=== PATIENT | female | born 2005 | race Caucasian/White ===

== ENCOUNTER 2024-08-03 20:44 | Emergency (ER) | payer MEDICAID, SELFPAY ==
[2024-08-03 20:47] VITALS: PULSE 137; RESP 34; TEMP 36.7; O2SAT 99
[2024-08-03 21:14] VITALS: RESP 18; O2SAT 97; BMI 23.2
--- NOTE | 2024-08-03 21:17 | ED.VIS.DYS ---
HPI History of Present Illness Chief Complaint: Shortness of Breath [facility] Medical History (Updated 08/03/24 @ 21:15 by Ursula Peres Self) Asthma Home Medications ?Medication ?Instructions ?Recorded ?Last Taken ?Type albuterol 90 mcg/actuation aerosol mcg inhalation 08/03/24 Unknown History inhaler albuterol 90 mcg/actuation aerosol mcg inhalation 08/03/24 Unknown History inhaler Allergy/AdvReac Type Severity Reaction Status Date / Time No Known Allergies Allergy Verified 08/03/24 20:47 Social History Smoking Status: Never smoker EXAM Physical Exam Const Vital Signs: 08/03/24 20:47 08/03/24 21:14 08/03/24 21:14 Temperature 98.1 F Temperature Source Temporal Pulse Rate 137 H Respiratory Rate 34 H 18 Pulse Ox 99 97 97 Oxygen Delivery Method Room Air Room Air Room Air [facility] MDM Narrative Medical decision making narrative: HISTORY OF PRESENT ILLNESS: 19-year-old female history of asthma presents with concern for shortness of breath. Notes she had a pretty severe asthma exacerbation that began just prior to arrival that has since resolved. No complaints at this time. No chest pain. No leg swelling. The patient denies recent surgery in the last 4 weeks or immobilization in the last 3 days, denies previous diagnosis of DVT or PE, hemoptysis, unilateral leg swelling or malignancy with treatment the last 6 months or palliative. No estrogen use noted. REVIEW OF SYSTEMS: Pertinent positives: Shortness of breath Pertinent negatives: Cough, fever, leg swelling, syncope, fever PHYSICAL EXAM: Nursing triage notes reviewed, Vital signs reviewed Constitutional: please see mdm HENT: MMM Eyes: Pupils equal round and reactive to light, Extraocular muscles intact Neck: No stridor, no JVD, full neck ROM Lungs: Clear to auscultation, slight end expiratory wheezing. No increased work of breathing, no conversational dyspnea, no accessory muscle use, no nasal flaring. No respiratory distress noted Heart: Regular rate and rhythm, No murmurs, No rubs and No gallops, 2+ distal pulses (radial, femoral, posterior tibial) in all extremities Abdomen: Soft, there is no tenderness, rigidity, rebound or guarding, no obvious peritoneal signs, no palpable pulsatile abdominal masses, no auscultated abdominal bruit : No CVAT Extremities: No edema Neuro: No new focal neurological deficits, cranial nerves II through XII intact, 5/5 strength in all present extremities. Intact sensation to light touch in all present extremities, 2+ reflexes bilateral patella tendons. Skin: No rash or lesions noted MEDICAL DECISION MAKING: Chief Complaint: Shortness of breath External records reviewed: Reviewed prior imaging studies Factors affecting care: Asthma Social determinants of health: none History obtained from others: none Consults: none MDM Narrative: Patient was initially tachycardic, afebrile, saturating 98% room air. Blood pressure 142/98, pulse was 88, she is afebrile with a temperature of 98.1. She appeared comfortable she is speaking in full sentences. Lungs had slight end expiratory wheezing otherwise no full consolidation. While considered pulmonary embolism I have a low suspicion for this etiology as patient had no risk factors, low risk Wells score and has clinical exam more consistent with asthma. Also considered bacterial pneumonia however the patient had clear lungs was not hypoxic or febrile. Also considered COVID/RSV/flu however the patient no infectious symptoms On reassessment patient heart rate remained 88 she is appropriate for discharge home. I considered the following differential diagnosis: Asthma exacerbation, pneumonia, COVID, RSV, flu, PE She was treated with a DuoNeb, albuterol. She is given prednisone. She will be prescribed prednisone. She notes she has inhaler at home. He is appropriate discharge home with a diagnosis of asthma exacerbation. All questions answered. Strict return precautions were discussed The patient and/or family, caregivers express understanding. The patient and/or family, caregivers agrees with the plan. Shared decision making: I will have a discussion with the patient and or visitors regarding risk/benefits of further testing or admission. They will be made aware of of the risk/benefits inherent in this decision they will be given the opportunity to voice understanding. Total critical care time today provided was at least 0 minutes. This excludes separately billable procedures. Critical care time (if documented) is secondary to the patient having high probability of clinically significant/life threatening deterioration in the patient's condition which required my urgent intervention. Impression: 1. Acute asthma exacerbation Dispo: Discharge home This note was generated with nviteation software. It may contain incorrect words, spelling, and punctuation that were not noted in review of the chart prior to signing. Discharge Plan Triage Chief Complaint: Shortness of Breath ED Provider: Mio Cristina Dx/Rx/DC Orders Prescriptions: No Action albuterol 90 mcg/actuation aerosol inhalation albuterol 90 mcg/actuation aerosol inhalation Print Language: Luxembourgish
[2024-08-03 21:19] VITALS: PULSE 94; RESP 20
[2024-08-03] MEDS: Ipratropium/Albuterol Sulfate 3 ML AMPUL.NEB INHALATION (21:19)
[2024-08-03] MEDS: Albuterol 2.5 MG/3 ML VIAL.NEB. INHALATION (21:19)
[2024-08-03 21:25] VITALS: PULSE 88; RESP 18; O2SAT 98
[2024-08-03] MEDS: predniSONE 20 MG Tablet 40 MG PO (21:51)
[2024-08-03 21:52] VITALS: BP 124/81; PULSE 86; RESP 18; O2SAT 99
== END 2024-08-03 22:07 | disposition home or self-care (01) ==
PROVIDERS: Emergency Provider Emergency Medicine; PCP Nurse Practitioner Family; Visit Provider Emergency Medicine
DX: J45.901 Unspecified asthma with (acute) exacerbation (principal)
CPT/HCPCS: 94640; 94760; 99282

== ENCOUNTER 2024-09-14 17:10 | Emergency (ER) | payer MEDICAID, SELFPAY ==
[2024-09-14 17:11] VITALS: BP 130/95; PULSE 102; RESP 24; TEMP 36.7; O2SAT 95
[2024-09-14 17:49] VITALS: PULSE 82; RESP 18; O2SAT 100
--- NOTE | 2024-09-14 17:50 | EDS_ITS ---
HPI History of Present Illness Chief Complaint: Asthma Informant: patient Narrative Narrative: Very pleasant 19-year-old female presenting to the emergency room out of concern for asthma exacerbation. Patient states that she sees pulmonology for her asthma. States that she also has vocal cord dysfunction. Today she was went to take a deep breath and and had some dysfunction which caused her to cough and then vomit. Since then she has felt some tightness in her chest and some wheezing. She has used her rescue inhaler with no resolution. Last asthma attack was possibly 1 months ago. [facility] Medical History Asthma Home Medications ?Medication ?Instructions ?Recorded ?Last Taken ?Type albuterol 90 mcg/actuation aerosol mcg inhalation 12/21 Unknown History inhaler albuterol 90 mcg/actuation aerosol mcg inhalation 12/21 Unknown History inhaler prednisone 50 mg tablet 50 mg PO DAILY 5 days #5 tab s 08/03/24 Unknown Rx prednisone 20 mg tablet 60 mg (3 x 20 mg) PO DAILY # 12 09/14/24 Unknown Rx TABLETS Allergy/AdvReac Type Severity Reaction Status Date / Time No Known Allergies Allergy Verified 08/03/24 20:47 Social History Smoking Status: Never smoker ROS [facility] ED Constitutional Constitutional ED: Denies chills or weight loss Eyes Eyes: Denies change in vision or diplopia ENT ENT ED: Denies ear pain, rhinorrhea or sore throat Cardiovascular Cardiovascular: Reports other Details: Chest tightness ; Denies chest pain, orthopnea, palpitations or racing heartbeat Respiratory/Chest Respiratory/Chest: Reports cough and dyspnea; Denies orthopnea Gastrointestinal Gastrointestinal: Reports vomiting; Denies abdominal pain, diarrhea or nausea Genitourinary Genitourinary ED: Denies dysuria, hematuria or urinary frequency Musculoskeletal Musculoskeletal: Denies arthralgias or myalgias Integumentary Denies abscess or rash Neurologic Neurologic: Denies headache(s) or weakness Psychiatric Psychiatric: Denies anxiety, depression, suicidal ideation or suicidal thoughts Endocrine Endocrinology: Denies polydipsia, polyphagia or polyuria Allergic/Immunologic Allergic/Immunologic ED: Denies mouth swelling, tongue swelling or urticaria EXAM Physical Exam Const Vital Signs: 09/14/24 17:11 09/14/24 17:32 09/14/24 17:49 Temperature 98.1 F Temperature Source Temporal Pulse Rate 102 H Respiratory Rate 24 H Respiratory Effort Normal Non-Labored Respiratory Depth Normal Respiratory Pattern Normal Blood Pressure 130/95 H Blood Pressure Mean 106 Pulse Ox 95 100 Oxygen Delivery Method Room Air Room Air Room Air 09/14/24 17:49 Temperature Temperature Source Pulse Rate 82 Respiratory Rate 18 Respiratory Effort Respiratory Depth Respiratory Pattern Blood Pressure Blood Pressure Mean Pulse Ox Oxygen Delivery Method Positive well nourished and well developed General Appearance ED: well developed and NAD HEENT Reports normocephalic, head/scalp atraumatic and moist mucous membranes HEENT Narrative: Airy voice Eyes PERRL and EOMs intact bilaterally Neck no lymphadenopathy, supple and no JVD Resp normal respiratory effort Resp Narrative: Faint end expiratory wheeze is heard bilaterally Cardio regular rate, regular rhythm and no murmurs GI normal to inspection, nondistended, normoactive bowel sounds and non-tender Palpation: soft Back/Spine no CVA tenderness and normal ROM Extremity normal to inspection General Extremety ED: Negative for edema General Extremity: Negative for edema Neuro oriented x3 and CN's II-XII intact bilaterally Sensorium / Orientation: alert Motor Exam: strength 5/5 throughout Psych mental status grossly normal Mood & Affect: Negative for depressed or tearful Skin no rashes or lesions noted and no wounds MDM MDM MDM Narrative Medical decision making narrative: Differential diagnosis includes but not limited to aspiration pneumonitis bronchospasm vocal cord dysfunction Based upon the history and the physical exam patient received a DuoNeb and a dose of prednisone. She be discharged home on 4 additional days of prednisone. Return if worsening or concerns. Patient is comfortable with this plan. Repeat lung auscultation shows that the expiratory wheezing has resolved. History & Record Review Discussion w/independent historian: Patient Discharge Plan Triage Chief Complaint: Asthma ED Provider: Rob Segura Dx/Rx/DC Orders Clinical Impression: Asthma, Acute bronchospasm Instructions: ED Asthma, Acute (Adult) Prescriptions: New prednisone 20 mg tablet 60 mg PO DAILY Qty: 12 0RF No Action albuterol 90 mcg/actuation aerosol inhalation albuterol 90 mcg/actuation aerosol inhalation prednisone 50 mg tablet 50 mg PO DAILY 5 Days Qty: 5 0RF Primary Care Provider: Starla Ortega Referrals: Starla Ortega, [facility] [Primary Care Provider] - As Needed Print Language: Macedonian Disposition Disposition: Home, Self Care
[2024-09-14] MEDS: predniSONE 20 MG Tablet 60 MG PO (17:53)
[2024-09-14] MEDS: Ipratropium/Albuterol Sulfate 3 ML AMPUL.NEB INHALATION (18:04)
[2024-09-14 18:52] VITALS: BP 123/72; PULSE 88; RESP 15; O2SAT 97
== END 2024-09-14 18:53 | disposition home or self-care (01) ==
LOC: ED 18:04
PROVIDERS: Emergency Provider Emergency Medicine; PCP Nurse Practitioner Family; Visit Provider Emergency Medicine
DX: J45.909 Unspecified asthma, uncomplicated (principal)
CPT/HCPCS: 94640; 99282